=== PATIENT | female | born 1960 | race Caucasian/White ===

== ENCOUNTER → 2018-11-11 | Outpatient (CLI) | payer MEDICAID ==
--- NOTE | 2018-11-11 08:34 | MR ---
EXAMINATION TYPE: MR shoulder RT wo con DATE OF EXAM: 11/11/2018 COMPARISON: X-ray 10/30/2008 HISTORY: Pain in right shoulder TECHNIQUE: Multiplanar, multisequence imaging of the right shoulder is performed without contrast. FINDINGS: Mild arthropathy of the AC joint. There is mild impingement supraspinatus muscle. There is mild atrophic change of vasculature. Bicipital tendon is well situated the bicipital groove. Motion artifact limits assessment of bony labrum. Grossly they appear intact. No abnormality within t he suprascapular notch. Benign cystic changes involving the humeral head could be on the basis of chronic impingement. Subscapularis tendon is normal appearance. There is a 15 mm area of abnormal signal near the insertion of the conjoined portion of the supraspin atus and infraspinatus tendons compatible tendinosis and partial intrasubstance tear. No retraction. Assessment of the inferior glenohumeral ligament is limited by motion but is grossly clear to be inta ct. IMPRESSION: 1. Impingement secondary to AC joint arthropathy. There is a 15 mm area of abnormal signal and thicke abimael involving the distal margin of the conjoined portion of the supraspinatus and infraspinatus tend on insertion with greater involvement of the supraspinatus. 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
== END | disposition home or self-care (01) ==
LOC: RADMRIMAIN 07:40
PROVIDERS: ATTEND Orthopaedic Surgery
DX: M12.811 Other specific arthropathies, not elsewhere classified, right shoulder (principal)